=== PATIENT | male | born 2005 | race Caucasian/White ===

== ENCOUNTER 2025-09-30 18:25 | Emergency (ER) | payer OTHER ==
[2025-09-30] MEDS ORDERED: Clindamycin 150 MG CAP ONE (18:40)
[2025-09-30] MEDS ORDERED: Boostrix 0.5 ML (Tdap) VIAL (>/=7 yrs of age) ONE (18:47)
== END 2025-09-30 19:05 | disposition home or self-care (01) ==
LOC: BURERS 18:25
DX: S71.112A Laceration without foreign body, left thigh, initial encounter (principal); F17.220 Nicotine dependence, chewing tobacco, uncomplicated; Z23 Encounter for immunization; W26.8XXA Contact with other sharp object(s), not elsewhere classified, initial encounter; Y99.0 Civilian activity done for income or pay
CPT/HCPCS: 90471; 90715